=== PATIENT | female | born 2000 | race Caucasian/White ===

== ENCOUNTER 2024-09-04 18:16 | Inpatient (IN) | payer OTHER ==
[2024-09-04] MEDS ORDERED: Ibuprofen 800 MG TAB PO PRN (22:56)
[2024-09-04] MEDS ORDERED: fentaNYL 50 mcg/mL 1 mL Vial SLOW IVP PRN (22:56)
[2024-09-04] MEDS ORDERED: hydrALAZINE 20 MG/ML VIAL SLOW IVP PRN (22:56)
[2024-09-04] MEDS ORDERED: Lidocaine 1% (PF) 30 ML VIAL SC PRN (22:56)
[2024-09-04] MEDS ORDERED: Insulin Regular, Human 100 UNIT/ML 10 ML VIAL SC PRN (22:56)
[2024-09-04] MEDS ORDERED: Misoprostol 100 MCG TAB PO SCH (22:56)
[2024-09-04] MEDS ORDERED: Oxytocin 30 units/NS 500 ML 500 ML IV SCH (22:56)
[2024-09-04] MEDS ORDERED: Dextrose 5% in Water 1,000 ML IV PRN (22:56)
[2024-09-04] MEDS ORDERED: Ondansetron PF 4 MG/2 ML Vial IVP PRN (22:56)
[2024-09-04] MEDS ORDERED: Lactated Ringer's 1,000 ML IV SCH (22:56)
[2024-09-04] MEDS ORDERED: Dextrose 50% Abboject 50 ML SYRINGE SLOW IVP PRN (22:56)
[2024-09-04] MEDS ORDERED: Glucagon 1 MG/ML KIT IM PRN (22:56)
[2024-09-04] MEDS ORDERED: HYDROcodone/Acetaminophen 5/325 mg Tablet PO PRN ×2 (22:56)
[2024-09-04] MEDS ORDERED: Promethazine HCl 25 MG/ML VIAL IM PRN (22:56)
[2024-09-04 23:52] LABS: Hematocrit 36.3 % (34.9-44.5); Hemoglobin 11.9 g/dL (12.0-15.5); Mean Corpuscular HGB CONC 32.8 g/dL (32.0-36.0); Mean Corpuscular Hemoglobin 26.6 pg (27.0-33.0); Mean Corpuscular Volume 81.2 fL (81.6-98.3); Mean Platelet Volume 10.8 fL (7.4-10.4); Platelet Count 224 10x3/uL (150-450); RBC Distribution Width 13.2 % (11.5-14.5); Red Blood Cell (RBC) Count 4.47 10x6/uL (3.90-5.03)
[2024-09-05 00:29] LABS: Syphilis Antibody Nonreactive (Nonreactive); Syphilis Antibody Index 0.25 S/CO (<1.00 Non-Reactive)
[2024-09-05 00:31] LABS: HBsAg Index 0.26 S/CO (0-0.99); Hep B Surf Ag - L&D Non-Reactive S/CO (NonReactive)
[2024-09-05 01:04] VITALS: BMI 39.5
[2024-09-05 01:19] LABS: Glucose 107 mg/dL (70-105)
[2024-09-05] MEDS ORDERED: Oxytocin 30 units/NS 500 ML 500 ML IVPB SCH (12:45)
[2024-09-05] MEDS ORDERED: Moisturizing Cream (Eucerin) 113 GM JAR TOP PRN ×2 (14:06→21:00)
[2024-09-05] MEDS ORDERED: Ondansetron PF 4 MG/2 ML Vial IVP PRN ×4 (14:06→23:33)
[2024-09-05] MEDS ORDERED: Naloxone HCl 0.4 mg/ml Vial IVP PRN ×4 (14:06→21:00)
[2024-09-05] MEDS ORDERED: Acetaminophen 325 MG TAB PO PRN ×2 (14:06→23:33)
[2024-09-05] MEDS ORDERED: Promethazine HCl 25 MG/ML VIAL IM PRN ×2 (14:06→21:00)
[2024-09-05] MEDS ORDERED: ePHEDrine Sulfate 50 MG/10 ML VIAL SLOW IVP PRN (14:06)
[2024-09-05] MEDS ORDERED: Lactated Ringer's 500 ML IV PRN (14:06)
[2024-09-05] MEDS ORDERED: diphenhydrAMINE 50 MG/ML VIAL IVP PRN ×2 (14:06→21:00)
[2024-09-05] MEDS ORDERED: fentaNYL 2 mcg/Ropivacaine 0.2% Epidural 100 ML CADD EPIDURAL SCH (14:15)
[2024-09-05] MEDS ORDERED: Communication Order-Pharmacy FS SCH ×2 (14:15→21:00)
[2024-09-05] MEDS: fentaNYL/Ropivacaine Epidural 100 ML ONE (14:20)
[2024-09-05] MEDS ORDERED: Bicitra 30 ML UDCUP PO PRN (19:50)
[2024-09-05] MEDS ORDERED: Famotidine/PF 20 mg/2ml Vial SLOW IVP PRN (19:50)
[2024-09-05] MEDS ORDERED: Azithromycin 500 MG in Sodium Chloride 0.9% 250 ML 250 ML IVPB SCH (20:00)
[2024-09-05] MEDS ORDERED: CEFAZOLIN 2 GM in Sodium Chloride 0.9% 100 ML IVPB SCH (20:00)
[2024-09-05] MEDS ORDERED: Meperidine HCl/PF 25 MG (1 mL) VIAL SLOW IVP PRN (21:00)
[2024-09-05] MEDS ORDERED: Naloxone HCl 0.4 mg/ml Vial IV PRN (21:00)
[2024-09-05] MEDS ORDERED: HYDROmorphone 0.5 MG/0.5 ML SYRINGE SLOW IVP PRN (21:00)
[2024-09-05] MEDS ORDERED: fentaNYL 50 mcg/mL 1 mL Vial SLOW IVP PRN (21:00)
[2024-09-05] MEDS: fentaNYL 50 mcg/mL 1 mL Vial ONE (22:17)
[2024-09-05] MEDS ORDERED: Simethicone Chewable 80 MG TAB PO PRN (23:33)
[2024-09-05] MEDS ORDERED: diphenhydrAMINE 25 MG CAP PO PRN (23:33)
[2024-09-05] MEDS ORDERED: Oxytocin 30 units/NS 500 ML 500 ML IV SCH (23:33)
[2024-09-05] MEDS ORDERED: hydrALAZINE 20 MG/ML VIAL SLOW IVP PRN (23:33)
[2024-09-05] MEDS ORDERED: Bisacodyl 10 MG SUPP PR PRN (23:33)
[2024-09-05] MEDS ORDERED: Lanolin Ointment 7 GM TUBE TOP PRN (23:33)
[2024-09-06] MEDS ORDERED: Ketorolac Tromethamine 30 MG (1 mL) VIAL IVP PRN (02:00)
[2024-09-06] MEDS: Lidocaine 2% MPF 10 ML AMP (For Epidural Use) ONE (03:13)
[2024-09-06] MEDS: Azithromycin 500 MG VIAL ONE (03:13)
[2024-09-06] MEDS: CEFAZOLIN 2 GM VIAL ONE (03:13)
[2024-09-06] MEDS: Dexamethasone 10 MG/ML VIAL ONE (03:14)
[2024-09-06] MEDS: Ketorolac Tromethamine 30 MG (1 mL) VIAL ONE (03:14)
[2024-09-06] MEDS: Morphine PF 10 MG/10 ML VIAL ONE (03:14)
[2024-09-06] MEDS: Ondansetron PF 4 MG/2 ML Vial ONE (03:14)
[2024-09-06] MEDS: Terbutaline Sulfate 1 MG/ML VIAL ONE (03:15)
[2024-09-06] MEDS: Phytonadione Neonatal 1 MG/0.5 ML AMP ONE (03:15)
[2024-09-06] MEDS: Erythromycin Base 0.5% Oint 1 GM TUBE ONE (03:15)
[2024-09-06] MEDS: Boostrix 0.5 ML (Tdap) VIAL (>/=7 yrs of age) IM ONE (03:16)
[2024-09-06] MEDS: Ferrous Sulfate 325 MG TAB PO SCH ×2 (03:16→08:29)
[2024-09-06] MEDS: Docusate 100 MG CAP PO SCH ×2 (03:16→08:29)
[2024-09-06 05:25] LABS: Hematocrit 32.6 % (34.9-44.5); Hemoglobin 10.8 g/dL (12.0-15.5); Mean Corpuscular HGB CONC 33.1 g/dL (32.0-36.0); Mean Corpuscular Hemoglobin 27.1 pg (27.0-33.0); Mean Corpuscular Volume 81.9 fL (81.6-98.3); Mean Platelet Volume 11.2 fL (7.4-10.4); Platelet Count 254 10x3/uL (150-450); RBC Distribution Width 13.2 % (11.5-14.5); Red Blood Cell (RBC) Count 3.98 10x6/uL (3.90-5.03); White Blood Cell (WBC) Count 18.4 10x3/uL (3.5-10.5)
[2024-09-06] MEDS: Hepatitis B Vaccine 10 MCG/0.5 ML SYR ONE (07:29)
[2024-09-06] MEDS: Ibuprofen 800 MG TAB PO SCH (08:28)
[2024-09-06] MEDS: Prenatal Vitamin 1 TAB PO SCH (08:29)
[2024-09-06] MEDS ORDERED: HYDROcodone/Acetaminophen 5/325 mg Tablet PO PRN (09:30)
[2024-09-06] MEDS ORDERED: Zolpidem Tartrate 5 MG TAB PO PRN (09:30)
[2024-09-06] MEDS: metFORMIN 500 MG TAB PO SCH (16:35)
[2024-09-07] MEDS: HYDROcodone/Acetaminophen 5/325 mg Tablet PO PRN (08:09)
[2024-09-07 16:43] VITALS: BP 115/70; TEMP 98.1
== END 2024-09-07 18:00 | disposition home or self-care (01) | DRG 788 ==
LOC: EEVIPCON 18:16 → CSHLD 18:16 → CSHPP 09-05 23:32
PROVIDERS: ADMIT Obstetrics & Gynecology; ATTEND Obstetrics & Gynecology
PROC: 10D00Z1 Extraction of Products of Conception, Low, Open Approach (ICD-10-PCS; principal; 2024-09-05)
PROC: 10907ZC Drainage of Amniotic Fluid, Therapeutic from Products of Conception, Via Natural or Artificial Opening (ICD-10-PCS; 2024-09-05)
PROC: 3E0S3BZ Introduction of Anesthetic Agent into Epidural Space, Percutaneous Approach (ICD-10-PCS; 2024-09-05)
DX: O24.12 Pre-existing type 2 diabetes mellitus, in childbirth (principal); E11.8 Type 2 diabetes mellitus with unspecified complications; Z3A.39 39 weeks gestation of pregnancy; Z37.0 Single live birth; O62.2 Other uterine inertia
CPT/HCPCS: 36415; 36416; 82947; 85027; 86780; 86850; 86900; 86901; 87340; J1100; J1885; J2274; J2405; J3010; J3105